=== PATIENT | female | born 1985 | race Caucasian/White ===

== ENCOUNTER 2021-06-30 17:17 | Inpatient (IN) | payer BC ==
[~2021-06-30 17:17] MED LIST: Bupivacaine 0.25% 10 ML SDV ONE
[2021-06-30] MEDS ORDERED: Acetaminophen 325 MG Tab PO PRN (17:45)
[2021-06-30] MEDS: Lactated Ringers 1,000 ML IV SCH ×2 (17:45→21:37)
[2021-06-30] MEDS ORDERED: Nalbuphine 10 MG/1 ML Vial IVPUSH PRN (17:45)
[2021-06-30] MEDS ORDERED: Lidocaine 1% 50 ML MDV INJECT ONE (17:45)
[2021-06-30] MEDS ORDERED: Oxytocin/Lactated Ringers 10 UNIT/1,000 ML BAG IV SCH ×2 (17:45)
[2021-06-30] MEDS ORDERED: Ampicillin 2 GM in Sodium Chloride 0.9% 100 ML IV ONE (18:00)
--- NOTE | 2021-06-30 18:20 | PCM.LDHP ---
L&D History of Present Illness - General Date of Service: 06/30/21 Admit Problem/Dx: Patient Status Order with Admit Dx/Problem 06/30/21 17:45 Patient Status [ADT] Routine Admission Diagnosis/Problem Admission Diagnosis/Problem Source of Information: Patient History Limitations: Reports: No Limitations - History of Present Illness Introduction:: Patient is a 36 y/o at 40 2/7 wks who presents in labor. Contractions started earlier today. Have progressed. Now feeling every 3-5 minutes. 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): - Past Surgical History HEENT Surgical History: Reports: Oral Surgery Social & Family History - Tobacco Use Tobacco Use Status *Q: Never Tobacco User - Alcohol Use Alcohol Use History: No - Recreational Drug Use Recreational Drug Use: No H&P Review of Systems - Review of Systems: Review Of Systems: See Below General: Reports: No Symptoms Pulmonary: Reports: No Symptoms Cardiovascular: Reports: No Symptoms Gastrointestinal: Reports: Abdominal Pain Genitourinary: Reports: No Symptoms Musculoskeletal: Reports: No Symptoms Psychiatric: Reports: No Symptoms Neurological: Reports: No Symptoms L&D Exam - Exam Exam: See Below - Vital Signs Vital Signs: Last Vital Signs Temp 36.2 C 06/30/21 17:45 Pulse 57 L 06/30/21 17:45 Resp 16 06/30/21 17:45 BP 144/89 H 06/30/21 17:45 Pulse Ox Weight: 82.735 kg - OB Specific Contraction Intensity: Moderate to Strong Movement: Active Heart Tones: Present Heart Tones per Min: 125 Heart Rate (FHR) Variability: Moderate (6-25 bpm) Presentation: Vertex - Perrin Score Perrin Score Cervix Position: Posterior Perrin Score Consistency: Soft Perrin Score Effacement: >80% Perrin Score Dilation: 3-4 cm Perrin Score Infant's Station: -1 ,0 Perrin Score Total: 9 - Exam General: Alert, Oriented, Cooperative Lungs: Clear to Auscultation, Normal Respiratory Effort Cardiovascular: Regular Rate, Regular Rhythm GI/Abdominal Exam: Soft, Non-Tender Genitourinary: Normal external exam Extremities: Normal Inspection Neurological: Normal Speech Psychiatric: Alert, Normal Affect, Normal Mood - Patient Data Lab Results Last 24 hrs: Laboratory Results - last 24 hr 06/30/21 Range/Units 17:55 WBC 11.02 H (3.98-10.04) K/mm3 RBC 4.13 (3.98-5.22) M/mm3 Hgb 13.2 (11.2-15.7) gm/dl Hct 39.2 (34.1-44.9) % MCV 94.9 H (79.4-94.8) fl MCH 32.0 (25.6-32.2) pg MCHC 33.7 (32.2-35.5) g/dl RDW Std Deviation 46.8 H (36.4-46.3) fL Plt Count 242 (182-369) K/mm3 MPV 11.7 (9.4-12.3) fl Neut % (Auto) 77.5 H (34.0-71.1) % Lymph % (Auto) 14.0 L (19.3-51.7) % [place] % (Auto) 7.9 (4.7-12.5) % Eos % (Auto) 0.3 L (0.7-5.8) Baso % (Auto) 0.1 (0.1-1.2) % Neut # (Auto) 8.55 H (1.56-6.13) K/mm3 Lymph # (Auto) 1.54 (1.18-3.74) K/mm3 [place] # (Auto) 0.87 H (0.24-0.36) K/mm3 Eos # (Auto) 0.03 L (0.04-0.36) K/mm3 Baso # (Auto) 0.01 (0.01-0.08) K/mm3 Result Diagrams: 06/30/21 17:55 - Problem List (1) 40 weeks gestation of SNOMED Code(s): 97872980 ICD Code: Z3A.40 - 40 WEEKS GESTATION OF Status: Acute Current Visit: Yes (2) Normal labor SNOMED Code(s): 35165847 ICD Code: O80 - ENCOUNTER FOR FULL-TERM UNCOMPLICATED DELIVERY; Z37.9 - OUTCOME OF DELIVERY, UNSPECIFIED Status: Acute Current Visit: Yes (3) GBS (group B Streptococcus carrier), +RV culture, currently SNOMED Code(s): 0247319202093, 379229120, 3216551010873 ICD Code: O99.820 - STREPTOCOCCUS B CARRIER STATE COMPLICATING Status: Acute Current Visit: Yes (4) Rubella non-immune status, antepartum SNOMED Code(s): 784971472 ICD Code: O99.891 - OTH DISEASES AND CONDITIONS COMPLICATING ; Z28.3 - UNDERIMMUNIZATION STATUS Status: Acute Current Visit: Yes Problem List Initiated/Reviewed/Updated: Yes Orders Last 24hrs: Active Orders 24 hr Category Date Time Status Patient Status [ADT] Routine ADT 06/30/21 17:45 Active Activity as Tolerated [RC] PFP Care 06/30/21 17:45 Active Communication Order [RC] ASDIRECTED Care 06/30/21 17:45 Active Heart Tones [RC] ASDIRECTED Care 06/30/21 17:45 Active Non Stress Test [RC] PER UNIT ROUTINE Care 06/30/21 17:45 Active Notify Provider [RC] PFP Care 06/30/21 17:45 Active Notify Provider [RC] PRN Care 06/30/21 17:45 Active Peripheral IV Care [RC] . DIRECTED Care 06/30/21 17:45 Active Pump Management, Intrathecal [RC] ASDIRECTED Care 06/30/21 17:46 Active Urinary Catheter Assessment [RC] ASDIRECTED Care 06/30/21 17:45 Active Vital Signs [RC] PER UNIT ROUTINE Care 06/30/21 17:45 Active Regular Diet [DIET] Diet 06/30/21 Breakfast Active ALANINE AMINOTRANSFERASE,ALT [CHEM] Routine Lab 06/30/21 18:13 Ordered ASPARTATE AMNIOTRANSFERASE,AST [CHEM] Routine Lab 06/30/21 18:13 Ordered CORONAVIRUS COVID-19 ANNIE [MOLEC] Stat Lab 06/30/21 17:40 Received CREATININE W/GFR [CHEM] Routine Lab 06/30/21 18:13 Ordered PROTEIN/CREATININE RATIO,URINE [URCHEM] Routine Lab 06/30/21 18:13 Ordered RAPID PLASMA REAGIN,RPR [CHEM] Routine Lab 06/30/21 17:55 Received Acetaminophen [TylenoL] Med 06/30/21 17:45 Active 650 mg PO Q4H PRN Ampicillin 1 gm Med 06/30/21 22:00 Active Sodium Chloride 0.9% [Normal Saline AdvBag] 100 ml IV Q4H Ampicillin 2 gm Med 06/30/21 18:00 Active Sodium Chloride 0.9% [Normal Saline AdvBag] 100 ml IV ONETIME Lactated Ringers [Ringers, Lactated] 1,000 ml Med 06/30/21 17:45 Active IV ASDIRECTED Nalbuphine [Nubain] Med 06/30/21 17:45 Active 10 mg IVPUSH Q2H PRN Ondansetron [Zofran] Med 06/30/21 17:45 Active 4 mg IVPUSH Q4H PRN Oxytocin/Lactated Ringers [Pitocin in LR 10 Units/1,000 Med 06/30/21 17:45 Active ML] 10 unit in 1,000 ml IV .CONTINUOUS Oxytocin/Lactated Ringers [Pitocin in LR 10 Units/1,000 Med 06/30/21 17:45 Active ML] 10 unit in 1,000 ml IV TITRATE Electronic Heart Tones Ext w TOCO [WOMSER] Oth 06/30/21 17:45 Ordered Routine Electronic Heart Tones Internal [WOMSER] Per Unit Oth 06/30/21 17:45 Ordered Routine Peripheral IV Insertion Adult [OM.PC] Routine Oth 06/30/21 17:45 Ordered Resuscitation Status Routine Resus Stat 06/30/21 17:45 Ordered Medication Orders Acetaminophen (Acetaminophen 325 Mg Tab) 650 mg PO Q4H PRN PRN Reason: Pain (Mild 1-3) and fever Ampicillin Sodium 2 gm/ Sodium (Chloride) 100 mls @ 200 mls/hr IV ONETIME ONE Stop: 06/30/21 18:29 Ampicillin Sodium 1 gm/ Sodium (Chloride) 100 mls @ 200 mls/hr IV Q4H JOHANNA Oxytocin/Lactated Ringer's (Pitocin In Lr 10 Units/1,000 Ml) 10 unit in 1,000 mls @ 12 mls/hr IV TITRATE JOHANNA; Protocol Oxytocin/Lactated Ringer's (Pitocin In Lr 10 Units/1,000 Ml) 10 unit in 1,000 mls @ 100 mls/hr IV .CONTINUOUS JOHANNA; Protocol Lactated Ringer's (Ringers, Lactated) 1,000 mls @ 100 mls/hr IV ASDIRECTED JOHANNA Nalbuphine HCl (Nalbuphine 10 Mg/1 Ml Vial) 10 mg IVPUSH Q2H PRN PRN Reason: Pain Ondansetron HCl (Ondansetron 4 Mg/2 Ml Sdv) 4 mg IVPUSH Q4H PRN PRN Reason: Nausea/Vomiting Assessment/Plan Comment:: * Labs done * GBS positive, Ampicillin started * Pain management per patient preference * Anticipate * MMR prior to discharge
[2021-06-30] MEDS ORDERED: diphenhydrAMINE 50 MG/ML SDV IVPUSH PRN (20:08)
[2021-06-30] MEDS ORDERED: Bupivacaine/fentaNYL/NS 100 ML Bag EPIDUR PRN (20:08)
[2021-06-30] MEDS ORDERED: ePHEDrine 50 MG/ML SDV IVPUSH PRN (20:08)
[2021-06-30] MEDS ORDERED: fentaNYL 100 MCG/2 ML SDV EPIDUR PRN (20:08)
--- NOTE | 2021-06-30 21:55 | PCM.PREANE ---
Preanesthetic Assessment - Procedure Proposed Procedure: calista - Anesthesia/Transfusion/Family Hx Anesthesia History: Prior Anesthesia Without Reaction Family History of Anesthesia Reaction: No Transfusion History: No Prior Transfusion(s) - Review of Systems General: No Symptoms Pulmonary: No Symptoms Cardiovascular: No Symptoms Gastrointestinal: No Symptoms Neurological: No Symptoms Other: Reports: None - Physical Assessment Vital Signs: Last Vital Signs Temp 97.1 F 06/30/21 17:45 Pulse 57 L 06/30/21 17:45 Resp 16 06/30/21 17:45 BP 144/89 H 06/30/21 17:45 Pulse Ox Height: 5 ft 5 in Weight: 82.735 kg ASA Class: 2 Mental Status: Alert & Oriented x3 Airway Class: Mallampati = 1 Dentition: Reports: Normal Dentition Thyro-Mental Finger Breadths: 3 Mouth Opening Finger Breadths: 3 ROM/Head Extension: Full Lungs: Clear to Auscultation, Normal Respiratory Effort Cardiovascular: Regular Rate, Regular Rhythm - Lab Values: Laboratory Last Values WBC 11.02 K/mm3 (3.98-10.04) H 06/30/21 17:55 RBC 4.13 M/mm3 (3.98-5.22) 06/30/21 17:55 Hgb 13.2 gm/dl (11.2-15.7) 06/30/21 17:55 Hct 39.2 % (34.1-44.9) 06/30/21 17:55 MCV 94.9 fl (79.4-94.8) H 06/30/21 17:55 MCH 32.0 pg (25.6-32.2) 06/30/21 17:55 MCHC 33.7 g/dl (32.2-35.5) 06/30/21 17:55 RDW Std Deviation 46.8 fL (36.4-46.3) H 06/30/21 17:55 Plt Count 242 K/mm3 (182-369) 06/30/21 17:55 MPV 11.7 fl (9.4-12.3) 06/30/21 17:55 Neut % (Auto) 77.5 % (34.0-71.1) H 06/30/21 17:55 Lymph % (Auto) 14.0 % (19.3-51.7) L 01/09/22 17:55 [place] % (Auto) 7.9 % (4.7-12.5) 06/30/21 17:55 Eos % (Auto) 0.3 (0.7-5.8) L 06/30/21 17:55 Baso % (Auto) 0.1 % (0.1-1.2) 06/30/21 17:55 Neut # (Auto) 8.55 K/mm3 (1.56-6.13) H 06/30/21 17:55 Lymph # (Auto) 1.54 K/mm3 (1.18-3.74) 06/30/21 17:55 [place] # (Auto) 0.87 K/mm3 (0.24-0.36) H 06/30/21 17:55 Eos # (Auto) 0.03 K/mm3 (0.04-0.36) L 06/30/21 17:55 Baso # (Auto) 0.01 K/mm3 (0.01-0.08) 06/30/21 17:55 Creatinine 0.8 mg/dL (0.55-1.02) 06/30/21 17:55 Est Cr Clr Drug Dosing 89.16 mL/min 06/30/21 17:55 Estimated GFR (MDRD) > 60 mL/min (>60) 06/30/21 17:55 AST 23 U/L (15-37) 06/30/21 17:55 ALT 23 U/L (14-59) 06/30/21 17:55 Ur Random Creatinine 48.3 mg/dL (30.0-125.0) 06/30/21 18:55 U Random Total Protein 11.6 mg/dL (0.0-11.8) 06/30/21 18:55 Protein/Creatinin Ratio 240.2 mg/g (0-149) H 06/30/21 18:55 SARS-CoV-2 RNA (ANNIE) Negative (NEGATIVE) 06/30/21 17:40 - Allergies Allergies/Adverse Reactions: Allergies Allergy/AdvReac Type Severity Reaction Status Date / Time No Known Allergies Allergy Verified 06/30/21 17:51 - Blood Blood Available: No - Acknowledgements Anesthesia Type Planned: Epidural Pt an Appropriate Candidate for the Planned Anesthesia: Yes Alternatives and Risks of Anesthesia Discussed w Pt/Guardian: Yes Pt/Guardian Understands and Agrees with Anesthesia Plan: Yes PreAnesthesia Questionnaire Cardiovascular History: Reports: None Respiratory History: Reports: None Gastrointestinal History: Reports: GERD 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 Other OB/BYN History: irregular cycles Musculoskeletal History: Reports: Other (See Below) Other Musculoskeletal History: polyarthralgia Psychiatric History: Reports: None Endocrine/Metabolic History: Reports: None - Past Surgical History HEENT Surgical History: Reports: Oral Surgery - SUBSTANCE USE Tobacco Use Status *Q: Never Tobacco User Second Hand Smoke Exposure: No Recreational Drug Use History: No - HOME MEDS Home Medications: Home Meds Doxylamine Succinate [Unisom] 25 mg PO BEDTIME PRN 06/30/21 [History] Omeprazole Magnesium [Prilosec Otc] 1 tab PO DAILY PRN 06/30/21 [History] No122/Iron/Folic Acid [ Multi Tablet] 1 tab PO DAILY 06/30/21 [History] - CURRENT (IN HOUSE) MEDS Current Meds: Current Medications Acetaminophen (Acetaminophen 325 Mg Tab) 650 mg PO Q4H PRN PRN Reason: Pain (Mild 1-3) and fever Diphenhydramine HCl (Diphenhydramine 50 Mg/Ml Sdv) 25 mg IVPUSH Q6H PRN PRN Reason: pruritis Ephedrine Sulfate (Ephedrine 50 Mg/Ml Sdv) 5 mg IVPUSH ASDIRECTED PRN PRN Reason: Hypotension Fentanyl (Fentanyl 100 Mcg/2 Ml Sdv) 100 mcg EPIDUR Q3H PRN PRN Reason: Pain Last Admin: 06/30/21 21:34 Dose: 100 mcg Documented by: Fentanyl/Bupivacaine HCl (Bupivacaine/Fentanyl/Ns 100 Ml Bag) 100 ml EPIDUR ASDIRECTED PRN PRN Reason: Pain Ampicillin Sodium 1 gm/ Sodium (Chloride) 100 mls @ 200 mls/hr IV Q4H JOHANNA Oxytocin/Lactated Ringer's (Pitocin In Lr 10 Units/1,000 Ml) 10 unit in 1,000 mls @ 12 mls/hr IV TITRATE JOHANNA; Protocol Oxytocin/Lactated Ringer's (Pitocin In Lr 10 Units/1,000 Ml) 10 unit in 1,000 mls @ 100 mls/hr IV .CONTINUOUS JOHANNA; Protocol Lactated Ringer's (Ringers, Lactated) 1,000 mls @ 100 mls/hr IV ASDIRECTED [facility] Last Admin: 06/30/21 21:37 Dose: 999 mls/hr Documented by: Nalbuphine HCl (Nalbuphine 10 Mg/1 Ml Vial) 10 mg IVPUSH Q2H PRN PRN Reason: Pain Ondansetron HCl (Ondansetron 4 Mg/2 Ml Sdv) 4 mg IVPUSH Q4H PRN PRN Reason: Nausea/Vomiting Discontinued Medications Ampicillin Sodium 2 gm/ Sodium (Chloride) 100 mls @ 200 mls/hr IV ONETIME ONE Stop: 06/30/21 18:29 Last Admin: 06/30/21 17:45 Dose: 200 mls/hr Documented by: Lidocaine HCl (Lidocaine 1% 50 Ml Mdv) 50 ml INJECT ONETIME ONE Stop: 06/30/21 17:46
[2021-06-30] MEDS: Ampicillin 1 GM in Sodium Chloride 0.9% 100 ML IV SCH (22:00)
--- NOTE | 2021-06-30 23:55 | PCM.PNLD ---
Labor Progress Note - VS & Meds Vital Signs: Last Vital Signs Temp 36.2 C 06/30/21 17:45 Pulse 57 L 06/30/21 17:45 Resp 16 06/30/21 17:45 BP 144/89 H 06/30/21 17:45 Pulse Ox Active Medications: Current Medications Acetaminophen (Acetaminophen 325 Mg Tab) 650 mg PO Q4H PRN PRN Reason: Pain (Mild 1-3) and fever Diphenhydramine HCl (Diphenhydramine 50 Mg/Ml Sdv) 25 mg IVPUSH Q6H PRN PRN Reason: pruritis Ephedrine Sulfate (Ephedrine 50 Mg/Ml Sdv) 5 mg IVPUSH ASDIRECTED PRN PRN Reason: Hypotension Fentanyl (Fentanyl 100 Mcg/2 Ml Sdv) 100 mcg EPIDUR Q3H PRN PRN Reason: Pain Last Admin: 06/30/21 21:34 Dose: 100 mcg Documented by: Fentanyl/Bupivacaine HCl (Bupivacaine/Fentanyl/Ns 100 Ml Bag) 100 ml EPIDUR ASDIRECTED PRN PRN Reason: Pain Ampicillin Sodium 1 gm/ Sodium (Chloride) 100 mls @ 200 mls/hr IV Q4H JOHANNA Oxytocin/Lactated Ringer's (Pitocin In Lr 10 Units/1,000 Ml) 10 unit in 1,000 mls @ 12 mls/hr IV TITRATE JOHANNA; Protocol Oxytocin/Lactated Ringer's (Pitocin In Lr 10 Units/1,000 Ml) 10 unit in 1,000 mls @ 100 mls/hr IV .CONTINUOUS JOHANNA; Protocol Lactated Ringer's (Ringers, Lactated) 1,000 mls @ 100 mls/hr IV ASDIRECTED JOHANNA Last Admin: 06/30/21 21:37 Dose: 999 mls/hr Documented by: Nalbuphine HCl (Nalbuphine 10 Mg/1 Ml Vial) 10 mg IVPUSH Q2H PRN PRN Reason: Pain Ondansetron HCl (Ondansetron 4 Mg/2 Ml Sdv) 4 mg IVPUSH Q4H PRN PRN Reason: Nausea/Vomiting Discontinued Medications Ampicillin Sodium 2 gm/ Sodium (Chloride) 100 mls @ 200 mls/hr IV ONETIME ONE Stop: 06/30/21 18:29 Last Admin: 06/30/21 17:45 Dose: 200 mls/hr Documented by: Lidocaine HCl (Lidocaine 1% 50 Ml Mdv) 50 ml INJECT ONETIME ONE Stop: 06/30/21 17:46 - Uterine Contractions Uterine Monitoring Mode: External [place] Contraction Intensity: Moderate to Strong - Monitoring Monitor Mode: External Ultrasound Heart Rate (FHR) Baseline: 145 Heart Rate (FHR) Variability: Moderate (6-25 bpm) Accelerations: Present, 15x15 Decelerations: None Strip Review: Category I - Vaginal Exam Dilation (cm): 4 Effacement (Percent): 90 Station: 0 Cervical Position: Midposition - Labor Progress (Free Text) Labor Progress: Doing well. Comfortable with epidural. Attempted AROM, but no return of fluid. Will continue to monitor.
[2021-07-01] MEDS: Ondansetron 4 MG/2 ML SDV IVPUSH PRN ×2 (00:02→06:30)
[2021-07-01] MEDS: Lactated Ringers 1,000 ML IV SCH ×2 (00:13→05:01)
[2021-07-01] MEDS: Ampicillin 1 GM in Sodium Chloride 0.9% 100 ML IV SCH ×3 (01:52→20:22)
--- NOTE | 2021-07-01 10:12 | PCM.DEL ---
L & D Note - General Info Date of Service: 07/01/21 - Delivery Note Labor: Spontaneous Delivery Outcome: Livebirth Delivery Method: Spontaneous Vaginal Delivery-Single Delivery Mode: Spontaneous Presentation: Right Occiput Anterior (JOSE) Nuchal Cord: None Anesthesia Type: Epidural Amniotic Fluid Description: Meconium Stained Episiotomy Type: None Laceration: 2nd Degree, Perineal Suture type: Vicryl Suture size: 2-0 Placenta: Intact, Spontaneous Cord: 3 Vessels Estimated Blood Loss: 200 Resuscitation Needed: Yes [place]: Bulb Syringe, Stimulated, Warmed, [place] Used, Warmer Used Delivery Comments (Free Text/Narrative):: Patient found to be complete and began pushing. With maternal pushing effort head delivered from JOSE presentation. No nuchal cord present. With gentle downward traction shoulders and body delivered. Infant placed on maternal abdomen. Cord clamped and cut. Cord blood obtained. Placenta allowed time to separate and expelled intact. Inspection of perineum with a 2nd degree laceration which was repaired with a 2-0 Vicryl in the typical fashion. - General Info Date of Service: 07/01/21 - Patient Data Vitals - Most Recent: Last Vital Signs Temp 36.2 C 06/30/21 17:45 Pulse 57 L 06/30/21 17:45 Resp 16 06/30/21 17:45 BP 144/89 H 06/30/21 17:45 Pulse Ox Weight - Most Recent: 82.735 kg I&O - Last 24 Hours: Intake & Output 06/30/21 07/01/21 07/01/21 22:59 06:59 14:59 Intake Total 2200 1000 Output Total 1000 Balance 2200 0 - Exam Urinary Catheter Total Time: 0Days 2Hours - Problem List & Annotations (1) 40 weeks gestation of SNOMED Code(s): 70968859 Code(s): Z3A.40 - 40 WEEKS GESTATION OF Status: Acute Current Visit: Yes (2) Normal labor SNOMED Code(s): 49319319 Code(s): O80 - ENCOUNTER FOR FULL-TERM UNCOMPLICATED DELIVERY; Z37.9 - OUTC OME OF DELIVERY, UNSPECIFIED Status: Acute Current Visit: Yes (3) GBS (group B Streptococcus carrier), +RV culture, currently SNOMED Code(s): 0758332594944, 537695121, 0961283740117 Code(s): O99.820 - STREPTOCOCCUS B CARRIER STATE COMPLICATING Status: Acute Current Visit: Yes (4) Rubella non-immune status, antepartum SNOMED Code(s): 518432263 Code(s): O99.891 - OTH DISEASES AND CONDITIONS COMPLICATING ; Z28.3 - UNDERIMMUNIZATION STATUS Status: Acute Current Visit: Yes (5) Vaginal delivery SNOMED Code(s): 776838840 Code(s): O80 - ENCOUNTER FOR FULL-TERM UNCOMPLICATED DELIVERY Status: Acute Current Visit: Yes - Problem List Review Problem List Initiated/Reviewed/Updated: Yes - My Orders Last 24 Hours: My Active Orders 06/30/21 17:45 Patient Status [ADT] Routine Activity as Tolerated [RC] PFP Communication Order [RC] ASDIRECTED Heart Tones [RC] ASDIRECTED Notify Provider [RC] PFP Notify Provider [RC] PRN Peripheral IV Care [RC] . DIRECTED Urinary Catheter Assessment [RC] ASDIRECTED Vital Signs [RC] PER UNIT ROUTINE Acetaminophen [TylenoL] 650 mg PO Q4H PRN Lactated Ringers [Ringers, Lactated] 1,000 ml IV ASDIRECTED Nalbuphine [Nubain] 10 mg IVPUSH Q2H PRN Ondansetron [Zofran] 4 mg IVPUSH Q4H PRN Oxytocin/Lactated Ringers [Pitocin in LR 10 Units/1,000 ML] 10 unit in 1,000 ml IV .CONTINUOUS Oxytocin/Lactated Ringers [Pitocin in LR 10 Units/1,000 ML] 10 unit in 1,000 ml IV TITRATE Electronic Heart Tones Ext w TOCO [WOMSER] Routine Electronic Heart Tones Internal [WOMSER] Per Unit Routine Peripheral IV Insertion Adult [OM.PC] Routine Resuscitation Status Routine 06/30/21 17:46 Pump Management, Intrathecal [RC] ASDIRECTED 06/30/21 22:00 Ampicillin 1 gm Sodium Chloride 0.9% [Normal Saline AdvBag] 100 ml IV Q4H - Assessment Assessment:: PPD#0 - Plan Plan:: * Routine cares * Breast feeding * Discharge in 1-2 days * MMR prior to discharge
[2021-07-01] MEDS ORDERED: Docusate Sodium 100 MG Cap PO PRN (11:19)
[2021-07-01] MEDS ORDERED: Benzocaine/Menthol 20%-0.5% Spray 78 GM Cannister TOP PRN (11:19)
[2021-07-01] MEDS ORDERED: Acetaminophen 325 MG Tab PO PRN (11:19)
[2021-07-01] MEDS: Witch Hazel Medicated Pads 40/Jar TOP PRN (11:59)
[2021-07-01] MEDS: Ibuprofen 600 MG Tab PO PRN ×2 (11:59→18:48)
--- NOTE | 2021-07-01 15:03 | PCM48HPAN ---
Post Anesthesia Note - EVALUATION WITHIN 48HRS OF ANESTHETIC Vital Signs in Normal Range: Yes Patient Participated in Evaluation: Yes Respiratory Function Stable: Yes Airway Patent: Yes Cardiovascular Function Stable: Yes Hydration Status Stable: Yes Pain Control Satisfactory: Yes Nausea and Vomiting Control Satisfactory: Yes Mental Status Recovered: Yes Vital Signs: Last Vital Signs Temp 97.2 F 07/01/21 14:38 Pulse 66 07/01/21 14:38 Resp 16 07/01/21 14:38 BP 132/83 07/01/21 14:38 Pulse Ox 95 07/01/21 14:38
[2021-07-02] MEDS: Ibuprofen 600 MG Tab PO PRN ×3 (01:33→16:27)
--- NOTE | 2021-07-02 07:20 | PCM.PNPP ---
- General Info Date of Service: 07/02/21 Functional Status: Reports: Pain Controlled, Tolerating Diet, Ambulating, Urinating - Review of Systems General: Reports: No Symptoms Pulmonary: Reports: No Symptoms Cardiovascular: Reports: No Symptoms Gastrointestinal: Reports: No Symptoms Genitourinary: Reports: No Symptoms Musculoskeletal: Reports: Back Pain - Patient Data Vital Signs - Most Recent: Last Vital Signs Temp 35.9 C L 07/02/21 02:32 Pulse 63 07/02/21 02:32 Resp 15 07/02/21 02:32 BP 104/67 07/02/21 02:32 Pulse Ox 96 07/02/21 02:32 Weight - Most Recent: 82.735 kg Med Orders - Current: Current Medications Acetaminophen (Acetaminophen 325 Mg Tab) 650 mg PO Q4H PRN PRN Reason: mild pain or fever Benzocaine/Menthol (Benzocaine/Menthol 20%-0.5% [place] 78 Gm Cannister) 0 gm TOP ASDIRECTED PRN PRN Reason: Perineal Comfort Measure Last Admin: 07/01/21 11:59 Dose: 1 can Documented by: Docusate Sodium (Docusate Sodium 100 Mg Cap) 100 mg PO BID PRN PRN Reason: Constipation Last Admin: 07/01/21 18:48 Dose: 100 mg Documented by: Ibuprofen (Ibuprofen 600 Mg Tab) 600 mg PO Q6H PRN PRN Reason: Mild pain or fever Last Admin: 07/02/21 01:33 Dose: 600 mg Documented by: Measles/Mumps/Rubella Vaccine Live (Measles, Mumps & Rubella Vaccine 0.5 Ml Sdv) 0.5 ml SUBCUT .ONCE ONE Stop: 07/02/21 10:14 Witch Frank (Witch Frank Medicated Pads 40/Jar) 1 pad TOP ASDIRECTED PRN PRN Reason: Perineal Comfort Measure Last Admin: 07/01/21 11:59 Dose: 1 container Documented by: Discontinued Medications Acetaminophen (Acetaminophen 325 Mg Tab) 650 mg PO Q4H PRN PRN Reason: Pain (Mild 1-3) and fever Diphenhydramine HCl (Diphenhydramine 50 Mg/Ml Sdv) 25 mg IVPUSH Q6H PRN PRN Reason: pruritis Ephedrine Sulfate (Ephedrine 50 Mg/Ml Sdv) 5 mg IVPUSH ASDIRECTED PRN PRN Reason: Hypotension Fentanyl (Fentanyl 100 Mcg/2 Ml Sdv) 100 mcg EPIDUR Q3H PRN PRN Reason: Pain Last Admin: 06/30/21 21:34 Dose: 100 mcg Documented by: Fentanyl/Bupivacaine HCl (Bupivacaine/Fentanyl/Ns 100 Ml Bag) 100 ml EPIDUR ASDIRECTED PRN PRN Reason: Pain Last Admin: 07/01/21 05:00 Dose: 100 ml Documented by: Ampicillin Sodium 2 gm/ Sodium (Chloride) 100 mls @ 200 mls/hr IV ONETIME ONE Stop: 06/30/21 18:29 Last Admin: 06/30/21 17:45 Dose: 200 mls/hr Documented by: Ampicillin Sodium 1 gm/ Sodium (Chloride) 100 mls @ 200 mls/hr IV Q4H JOHANNA Last Admin: 07/01/21 20:22 Dose: Not Given Documented by: Oxytocin/Lactated Ringer's (Pitocin In Lr 10 Units/1,000 Ml) 10 unit in 1,000 mls @ 12 mls/hr IV TITRATE JOHANNA; Protocol Oxytocin/Lactated Ringer's (Pitocin In Lr 10 Units/1,000 Ml) 10 unit in 1,000 mls @ 100 mls/hr IV .CONTINUOUS JOHANNA; Protocol Last Infusion: 07/01/21 11:00 Dose: 100 mls/hr Documented by: Lactated Ringer's (Ringers, Lactated) 1,000 mls @ 100 mls/hr IV ASDIRECTED JOHANNA Last Admin: 07/01/21 05:01 Dose: 100 mls/hr Documented by: Lidocaine HCl (Lidocaine 1% 50 Ml Mdv) 50 ml INJECT ONETIME ONE Stop: 06/30/21 17:46 Last Admin: 07/01/21 20:22 Dose: Not Given Documented by: Nalbuphine HCl (Nalbuphine 10 Mg/1 Ml Vial) 10 mg IVPUSH Q2H PRN PRN Reason: Pain Ondansetron HCl (Ondansetron 4 Mg/2 Ml Sdv) 4 mg IVPUSH Q4H PRN PRN Reason: Nausea/Vomiting Last Admin: 07/01/21 06:30 Dose: 4 mg Documented by: - Interaction Disposition, : [place] in Room with Family Feeding: Attempted ; Nursed Fair/Poor Support Person: - Recovery Exam Fundal Tone: Firm Fundal Level: 1 Fingerbreadths Below Umbilicus Fundal Placement: Midline Lochia Amount: Small Lochia Color: Rubra/Red Perineum Description: Edematous Episiotomy/Laceration: Approximated Bladder Status: Voiding Urinary Elimination: Voided - Exam General: Alert, Oriented, Cooperative GI/Abdominal Exam: Soft, Non-Tender - Problem List & Annotations (1) 40 weeks gestation of SNOMED Code(s): 86574555 Code(s): Z3A.40 - 40 WEEKS GESTATION OF Status: Acute Current Visit: Yes (2) Normal labor SNOMED Code(s): 60200566 Code(s): O80 - ENCOUNTER FOR FULL-TERM UNCOMPLICATED DELIVERY; Z37.9 - OUTCOME OF DELIVERY, UNSPECIFIED Status: Acute Current Visit: Yes (3) GBS (group B Streptococcus carrier), +RV culture, currently SNOMED Code(s): 9820280270945, 754875944, 1022059353311 Code(s): O99.820 - STREPTOCOCCUS B CARRIER STATE COMPLICATING Status: Acute Current Visit: Yes (4) Rubella non-immune status, antepartum SNOMED Code(s): 424097294 Code(s): O99.891 - OTH DISEASES AND CONDITIONS COMPLICATING ; Z28.3 - UNDERIMMUNIZATION STATUS Status: Acute Current Visit: Yes (5) Vaginal delivery SNOMED Code(s): 349141887 Code(s): O80 - ENCOUNTER FOR FULL-TERM UNCOMPLICATED DELIVERY Status: Acute Current Visit: Yes - Problem List Review Problem List Initiated/Reviewed/Updated: Yes - My Orders Last 24 Hours: My Active Orders 07/01/21 Breakfast Regular Diet [DIET] 07/01/21 11:19 Acetaminophen [TylenoL] 650 mg PO Q4H PRN Benzocaine/Menthol [Dermoplast Pain Relief 20%-0.5% [place]] See Dose Instructions TOP ASDIRECTED PRN Docusate Sodium [Colace] 100 mg PO BID PRN Ibuprofen [Motrin] 600 mg PO Q6H PRN witch Frank [Tucks] 1 pad TOP ASDIRECTED PRN Heat Therapy [OM.PC] PRN 07/01/21 11:19 Activity as Tolerated [RC] PER UNIT ROUTINE Up ad Odalis [RC] ASDIRECTED Vital Signs [RC] 03,09,15,21 Assess Lochia [WOMSER] Per Unit Routine Assess Uterine Involution [WOMSER] Per Unit Routine Breast Pump [WOMSER] Per Unit Routine Ice Therapy [OM.PC] Per Unit Routine Perineal Care [OM.PC] Per Unit Routine Peripheral IV Discontinue [OM.PC] Routine Sitz Bath [OM.PC] Per Unit Routine 07/02/21 10:13 Measles, Mumps & Rubella [M-M-R II Vaccine] 0.5 ml SUBCUT .ONCE ONE 07/02/21 11:19 Heat Therapy [OM.PC] PRN - Assessment Assessment:: PPD#1 - Plan Plan:: * Routine cares * Breast feeding * Discharge tomorrow * MMR prior to discharge
[2021-07-02] MEDS ORDERED: Measles, Mumps & Rubella Vaccine 0.5 ML SDV SUBCUT ONE (10:13)
[2021-07-02] MEDS: Witch Hazel Medicated Pads 40/Jar TOP PRN (14:22)
[2021-07-03] MEDS: Ibuprofen 600 MG Tab PO PRN (01:26)
--- NOTE | 2021-07-03 02:27 | PCM.DCSUM1 ---
Discharge Summary - Discharge Data Discharge Date: 07/03/21 Discharge Disposition: Home, Self-Care 01 Condition: Good - Referral to Home Health Primary Care Physician: PCP None - Discharge Diagnosis/Problem(s) (1) 40 weeks gestation of SNOMED Code(s): 55102534 ICD Code: Z3A.40 - 40 WEEKS GESTATION OF Status: Acute Current Visit: Yes (2) Normal labor SNOMED Code(s): 05307227 ICD Code: O80 - ENCOUNTER FOR FULL-TERM UNCOMPLICATED DELIVERY; Z37.9 - OUTCOME OF DELIVERY, UNSPECIFIED Status: Acute Current Visit: Yes (3) GBS (group B Streptococcus carrier), +RV culture, currently SNOMED Code(s): 3175327304268, 014552424, 4027600024158 ICD Code: O99.820 - STREPTOCOCCUS B CARRIER STATE COMPLICATING Status: Acute Current Visit: Yes (4) Rubella non-immune status, antepartum SNOMED Code(s): 285512710 ICD Code: O99.891 - OTH DISEASES AND CONDITIONS COMPLICATING ; Z28.3 - UNDERIMMUNIZATION STATUS Status: Acute Current Visit: Yes (5) Vaginal delivery SNOMED Code(s): 429907595 ICD Code: O80 - ENCOUNTER FOR FULL-TERM UNCOMPLICATED DELIVERY Status: Acute Current Visit: Yes - Patient Summary/Data Complications: None Consults: None Recommended Follow-up Testing/Procedures: Follow up in 3 weeks for check Hospital Course: 36 y/o at 40 2/7 wks who presented in labor. Progressed well without the need for augmentation. Underwent an uncomplicated . See delivery note. did well and was discharged home on PPD#2 - Patient Instructions Diet: Regular Diet as Tolerated Activity: As Tolerated Activity, Other: Pelvic rest for 6 weeks Driving: May Drive Today Showering/Bathing: May Shower Showering/Bathing, Other: May Bathe Notify Provider of: Fever, Increased Pain, Swelling and Redness, Drainage, Nausea and/or Vomiting - Discharge Plan *PRESCRIPTION DRUG MONITORING PROGRAM REVIEWED*: No *COPY OF PRESCRIPTION DRUG MONITORING REPORT IN PATIENT ASHU: No Home Medications: Home Meds No122/Iron/Folic Acid [ Multi Tablet] 1 tab PO DAILY 06/30/21 [History] Acetaminophen [Tylenol] 650 mg PO Q4H PRN tablet 07/02/21 [Rx] Docusate Sodium [Colace] 100 mg PO BID PRN cap 07/02/21 [Rx] Ibuprofen [Motrin] 600 mg PO Q6H PRN tablet 07/02/21 [Rx] Patient Handouts: and Breast Care, Care After Vaginal Delivery Referrals: Chayo Du MD [Physician] - (3 weeks for check ) - Discharge Summary/Plan Comment DC Time >30 min.: No Total # of Minutes for Discharge Time: 15 - Patient Data Vitals - Most Recent: Last Vital Signs Temp 36.5 C 07/02/21 20:37 Pulse 60 07/02/21 20:37 Resp 14 07/02/21 20:37 BP 135/85 07/02/21 20:37 Pulse Ox 96 07/02/21 20:37 Weight - Most Recent: 82.735 kg I&O - Last 24 hours: Intake & Output 07/02/21 07/02/21 07/03/21 14:59 22:59 06:59 Intake Total 360 Balance 360 Med Orders - Current: Current Medications Acetaminophen (Acetaminophen 325 Mg Tab) 650 mg PO Q4H PRN PRN Reason: mild pain or fever Benzocaine/Menthol (Benzocaine/Menthol 20%-0.5% [place] 78 Gm Cannister) 0 gm TOP ASDIRECTED PRN PRN Reason: Perineal Comfort Measure Last Admin: 07/01/21 11:59 Dose: 1 can Documented by: Docusate Sodium (Docusate Sodium 100 Mg Cap) 100 mg PO BID PRN PRN Reason: Constipation Last Admin: 07/01/21 18:48 Dose: 100 mg Documented by: Ibuprofen (Ibuprofen 600 Mg Tab) 600 mg PO Q6H PRN PRN Reason: Mild pain or fever Last Admin: 07/03/21 01:26 Dose: 600 mg Documented by: Jt Aguayo (Jt Aguayo Medicated Pads 40/Jar) 1 pad TOP ASDIRECTED PRN PRN Reason: Perineal Comfort Measure Last Admin: 07/02/21 14:22 Dose: 1 container Documented by: Discontinued Medications Acetaminophen (Acetaminophen 325 Mg Tab) 650 mg PO Q4H PRN PRN Reason: Pain (Mild 1-3) and fever Bupivacaine HCl (Bupivacaine 0.25% 10 Ml Sdv) 10 ml .ROUTE .STK-MED ONE Stop: 06/30/21 00:01 Diphenhydramine HCl (Diphenhydramine 50 Mg/Ml Sdv) 25 mg IVPUSH Q6H PRN PRN Reason: pruritis Ephedrine Sulfate (Ephedrine 50 Mg/Ml Sdv) 5 mg IVPUSH ASDIRECTED PRN PRN Reason: Hypotension Fentanyl (Fentanyl 100 Mcg/2 Ml Sdv) 100 mcg EPIDUR Q3H PRN PRN Reason: Pain Last Admin: 06/30/21 21:34 Dose: 100 mcg Documented by: Fentanyl/Bupivacaine HCl (Bupivacaine/Fentanyl/Ns 100 Ml Bag) 100 ml EPIDUR ASDIRECTED PRN PRN Reason: Pain Last Admin: 07/01/21 05:00 Dose: 100 ml Documented by: Ampicillin Sodium 2 gm/ Sodium (Chloride) 100 mls @ 200 mls/hr IV ONETIME ONE Stop: 06/30/21 18:29 Last Admin: 06/30/21 17:45 Dose: 200 mls/hr Documented by: Ampicillin Sodium 1 gm/ Sodium (Chloride) 100 mls @ 200 mls/hr IV Q4H JOHANNA Last Admin: 07/01/21 20:22 Dose: Not Given Documented by: Oxytocin/Lactated Ringer's (Pitocin In Lr 10 Units/1,000 Ml) 10 unit in 1,000 mls @ 12 mls/hr IV TITRATE JOHANNA; Protocol Oxytocin/Lactated Ringer's (Pitocin In Lr 10 Units/1,000 Ml) 10 unit in 1,000 mls @ 100 mls/hr IV .CONTINUOUS JOHANNA; Protocol Last Infusion: 07/01/21 11:00 Dose: 100 mls/hr Documented by: Lactated Ringer's (Ringers, Lactated) 1,000 mls @ 100 mls/hr IV ASDIRECTED JOHANNA Last Admin: 07/01/21 05:01 Dose: 100 mls/hr Documented by: Lidocaine HCl (Lidocaine 1% 50 Ml Mdv) 50 ml INJECT ONETIME ONE Stop: 06/30/21 17:46 Last Admin: 07/01/21 20:22 Dose: Not Given Documented by: Measles/Mumps/Rubella Vaccine Live (Measles, Mumps & Rubella Vaccine 0.5 Ml Sdv) 0.5 ml SUBCUT .ONCE ONE Stop: 07/02/21 10:14 Nalbuphine HCl (Nalbuphine 10 Mg/1 Ml Vial) 10 mg IVPUSH Q2H PRN PRN Reason: Pain Ondansetron HCl (Ondansetron 4 Mg/2 Ml Sdv) 4 mg IVPUSH Q4H PRN PRN Reason: Nausea/Vomiting Last Admin: 07/01/21 06:30 Dose: 4 mg Documented by:
== END 2021-07-03 08:50 | disposition home or self-care (01) | DRG 560 ==
LOC: JD.OBCHECK 17:17 → JD.OB 17:41 → JD.OBCHECK 17:45 → OBSVTOIN 17:45 → JD.OB 07-01 09:54
PROVIDERS: ADMIT Obstetrics & Gynecology; ATTEND Obstetrics & Gynecology
PROC: 10E0XZZ Delivery of Products of Conception, External Approach (ICD-10-PCS; principal; 2021-06-30)
PROC: 0KQM0ZZ Repair Perineum Muscle, Open Approach (ICD-10-PCS; 2021-06-30)
PROC: 3E0R3BZ Introduction of Anesthetic Agent into Spinal Canal, Percutaneous Approach (ICD-10-PCS; 2021-06-30)
PROC: 00HU33Z Insertion of Infusion Device into Spinal Canal, Percutaneous Approach (ICD-10-PCS; 2021-06-30)
PROC: 10907ZC Drainage of Amniotic Fluid, Therapeutic from Products of Conception, Via Natural or Artificial Opening (ICD-10-PCS; 2021-06-30)
DX: O99.824 Streptococcus B carrier state complicating childbirth (principal); Z3A.40 40 weeks gestation of pregnancy; Z37.0 Single live birth; O77.0 Labor and delivery complicated by meconium in amniotic fluid; Z20.822 Contact with and (suspected) exposure to COVID-19; O70.1 Second degree perineal laceration during delivery
CPT/HCPCS: 01967; 36415; 51702; 59025; 59409; 82565; 82570; 84156; 84450; 84460; 85025; 86592; A9270-GY; J0290; J2405; J2590; J3010; J3490; J7120; U0002

== ENCOUNTER 2024-05-11 06:28 | Inpatient (IN) | payer BC ==
[~2024-05-11 06:28] MED LIST changes: +ePHEDrine 50 MG/ML SDV ONE
[2024-05-11] MEDS ORDERED: Nalbuphine 10 MG/1 ML Vial IVPUSH PRN (19:25)
[2024-05-11] MEDS ORDERED: Sodium Chloride 0.9% 10 ML Syringe FLUSH PRN (19:25)
[2024-05-11] MEDS ORDERED: Lidocaine 1% 50 ML MDV INJECT PRN (19:25)
[2024-05-11] MEDS ORDERED: Oxytocin/0.9 % Sodium Chloride 30 UNIT/500 ML BAG IV SCH (19:30)
[2024-05-11] MEDS: Ampicillin 2 GM in Sodium Chloride 0.9% 100 ML IV ONE (19:48)
[2024-05-11] MEDS: Lactated Ringers 1,000 ML IV SCH (19:50)
[2024-05-11] MEDS: Misoprostol 25 MCG (1/4 of 100 MCG) Tab VAG PRN (19:54)
[2024-05-11 19:58] LABS: BASOPHILS PERCENT AUTO 0.2 % (0.0-1.0); EOSINOPHILS ABSOLUTE AUTO 0.1 K/mm3 (0.0-0.4); EOSINOPHILS PERCENT AUTO 0.7 % (0.0-6.0); HEMATOCRIT 34.9 % (37.0-47.0); HEMOGLOBIN 12.2 gm/dl (12.0-16.0); IMMATURE GRAN ABSOLUTE AUTO 0.03 K/mm3 (0.00-0.05); IMMATURE GRAN PERCENT AUTO 0.4 % (0.0-0.4); LYMPHOCYTES ABSOLUTE AUTO 1.5 K/mm3 (1.0-4.8); LYMPHOCYTES PERCENT AUTO 18.1 % (24.0-44.0); MEAN CORPUSCULAR HEMOGLOBIN 31.9 pg (28.0-32.0); MEAN CORPUSCULAR VOLUME 91.4 fl (83.0-99.0); MEAN PLATELET VOLUME 11.5 fl (9.4-12.3); MONOCYTES ABSOLUTE AUTO 0.7 K/mm3 (0.0-0.8); MONOCYTES PERCENT AUTO 8.1 % (0.0-8.0); NEUTROPHILS ABSOLUTE AUTO 5.9 K/mm3 (1.8-7.7); NEUTROPHILS PERCENT AUTO 72.5 % (41.0-71.0); PLATELET COUNT,PLT 229 K/mm3 (150-400); RED BLOOD CELL COUNT 3.82 M/mm3 (4.10-5.30); WHITE BLOOD CELL COUNT,WBC 8.18 K/mm3 (3.9-11.3)
[2024-05-11] MEDS ORDERED: Sodium Chloride 0.9% 10 ML Syringe FLUSH SCH (21:00)
[2024-05-11] MEDS ORDERED: ePHEDrine 50 MG/ML SDV IVPUSH PRN (23:29)
[2024-05-11] MEDS ORDERED: diphenhydrAMINE 50 MG/ML SDV IVPUSH PRN (23:29)
[2024-05-11] MEDS: Ampicillin 1 GM in Sodium Chloride 0.9% 100 ML IV SCH (23:53)
[2024-05-12] MEDS: Oxytocin/0.9 % Sodium Chloride 30 UNIT/500 ML BAG IV SCH (00:16)
[2024-05-12] MEDS: fentaNYL 100 MCG/2 ML SDV EPIDUR PRN (05:13)
[2024-05-12] MEDS: Bupivacaine/fentaNYL/NS 100 ML Bag EPIDUR PRN (05:14)
[2024-05-12] MEDS: Ondansetron 4 MG/2 ML SDV IVPUSH PRN (07:52)
[2024-05-12] MEDS ORDERED: Acetaminophen 325 MG Tab PO PRN (10:52)
[2024-05-12] MEDS ORDERED: Witch Hazel Medicated Pads 40/Jar TOP PRN (10:52)
[2024-05-12] MEDS ORDERED: Benzocaine/Menthol 20%-0.5% Spray 78 GM Cannister TOP PRN (10:52)
[2024-05-12] MEDS: Ibuprofen 600 MG Tab PO SCH ×2 (12:02→16:30)
[2024-05-12] MEDS: Docusate Sodium 100 MG Cap PO PRN (21:17)
== END 2024-05-13 10:30 | disposition home or self-care (01) | DRG 560 ==
LOC: JD.OB 06:28 → OBSVTOIN 05-12 06:28 → JD.OB 05-12 06:29
PROVIDERS: ADMIT Obstetrics & Gynecology; ATTEND Obstetrics & Gynecology
PROC: 10E0XZZ Delivery of Products of Conception, External Approach (ICD-10-PCS; principal; 2024-05-12)
PROC: 10907ZC Drainage of Amniotic Fluid, Therapeutic from Products of Conception, Via Natural or Artificial Opening (ICD-10-PCS; 2024-05-12)
PROC: 3E033VJ Introduction of Other Hormone into Peripheral Vein, Percutaneous Approach (ICD-10-PCS; 2024-05-12)
PROC: 3E0DXGC Introduction of Other Therapeutic Substance into Mouth and Pharynx, External Approach (ICD-10-PCS; 2024-05-12)
PROC: 0HQ9XZZ Repair Perineum Skin, External Approach (ICD-10-PCS; 2024-05-12)
PROC: 3E0R3BZ Introduction of Anesthetic Agent into Spinal Canal, Percutaneous Approach (ICD-10-PCS; 2024-05-12)
PROC: 00HU33Z Insertion of Infusion Device into Spinal Canal, Percutaneous Approach (ICD-10-PCS; 2024-05-12)
DX: O99.824 Streptococcus B carrier state complicating childbirth (principal); Z37.0 Single live birth; O70.0 First degree perineal laceration during delivery; O69.81X0 Labor and delivery complicated by cord around neck, without compression, not applicable or unspecified; Z3A.39 39 weeks gestation of pregnancy; Z98.890 Other specified postprocedural states
CPT/HCPCS: 01967; 36415; 59025; 59409; 85025; 86592; 86850; 86900; 86901; A9270-GY; J0290; J0665; J2405; J3010; J3490; J7120; J7999